=== PATIENT | female | born 1980 | race Hispanic/Latino ===

== ENCOUNTER 2025-01-17 16:05 | Emergency (ER) | payer SELFPAY ==
[2025-01-17 20:13] LABS: Absolute Lymphocytes (CBC) 1.8 K/uL (0.7-4.9); Absolute Monocytes 0.2 K/uL (0.1-1.3); Absolute Neutrophil 7.8 K/uL (1.8-8.0); Albumin 3.8 g/dL (3.4-5.0); Albumin/Globulin Ratio 0.8 (1.1-1.8); Basophils % 0.5 % (0-1.3); Bilirubin Total 0.5 mg/dL (0.2-1.0); Globulin 4.7 g/dL (2.3-3.5); Hematocrit 45.6 % (36.0-45.0); Hemoglobin 14.9 g/dL (12.0-15.0); Lymphocytes % 18.4 % (15.3-44.8); MCH 31.2 pg (27.0-35.0); MCHC 32.7 g/dL (32.0-36.0); MCV 95.6 fL (80-100); MPV 11.2 fL (7.6-11.3); Monocytes % 2.3 % (3.3-12.3); Neutrophils % 78.8 % (41.7-73.7); Platelets 220 thou/uL (152-406); Protein, Total 8.5 g/dL (6.4-8.2); RBC Red Blood Cell Count 4.77 M/uL (3.86-4.86); Red Cell Distribution Width 13.3 % (12.1-15.2)
[2025-01-17] MEDS ORDERED: ONDANSETRON 4 MG/2 ML VIAL ONE (20:50)
[2025-01-17] MEDS ORDERED: KETOROLAC 30 MG/ML INJ ONE (20:50)
[2025-01-17] MEDS ORDERED: FAMOTIDINE 20 MG/2 ML VIAL IV ONE (20:51)
[2025-01-17] MEDS ORDERED: NA CHLORIDE 0.9% 1,000 ML ONE (20:51)
[2025-01-17 21:08] LABS: Specific Gravity > 1.030 (1.005-1.030); Sqamous Epithelial 20-50 /HPF (None Seen); Urine Bacteria 20-50 /HPF (<20); Urine Bilirubin NEGATIVE (Negative); Urine Blood Negative (Negative); Urine Clarity Extremely Turbid (Clear); Urine Color Yellow (Yellow); Urine Crystals Unidentified Few /HPF (None Seen); Urine Culture Reflex Order NOT NEEDED; Urine Glucose NEGATIVE (Negative); Urine Ketones 4+ (Over) (Negative); Urine Microscopic Reflex YN ORDER UMIC; Urine Mucus 3+ /HPF (None Seen); Urine Nitrite NEGATIVE (Negative); Urine Protein 1+ (Negative); Urine Urobilinogen Normal (Normal); Urine WBC <5 /HPF (<5)
--- NOTE | 2025-01-17 21:36 | RAD REPORT ---
EXAMINATION: CT ABDOMEN AND PELVIS WITH AND WITHOUT CONTRAST CLINICAL INDICATION: Female, 44 years old.left flank pain TECHNIQUE: CT abdomen and pelvis was performed before and after the administration of IV contrast as per department protocol. Axial, sagittal and coronal reconstructions were obtained. One or more of the following dose reduction techniques were used: Automated exposure control, adjustment of the mA a nd/or kV according to patient size, and/or iterative reconstruction. Unless otherwise specified, incidental findings do not require dedicated imaging follow-up. [id number]. COMPARISON: No prior exam. FINDINGS: LOWER CHEST: No acute process identified.No significant pericardial effusion. Mild circumferential th ickening of the distal esophagus which could reflect esophagitis. UPPER GI: No significant abnormality. LIVER: No significant focal abnormality. GALLBLADDER/BILE DUCTS: No biliary ductal dilatation.? PANCREAS: No mass, ductal dilation, or una-pancreatic fluid. SPLEEN: Unremarkable. ADRENALS: No adrenal masses. KIDNEYS AND URETERS: No hydronephrosis.No suspicious renal mass. ABDOMINAL AORTA AND OTHER VESSELS: Normal caliber aorta and IVC. PERITONEUM: No abnormal free fluid. No free air. LYMPH NODES: No pathologic lymphadenopathy. ABDOMINAL WALL: Nonspecific soft tissue nodule in the left lower abdominal wall this is irregular in appearance with some slight stranding. It could reflect an endometrioma. It measures approximately 2.2 x 1.3 cm. SMALL BOWEL/COLON: Small bowel has normal course and caliber. No colonic wall thickening or pericolon ic inflammatory changes.Normal appendix. URINARY BLADDER: Underdistended but grossly unremarkable. REPRODUCTIVE ORGANS: Complex adnexal mass just anterior to the uterus measures 8.2 x 9.4 x 6.1 cm. Th is appears septated and cystic. There are areas portions with higher attenuation but no enhancement is seen. MUSCULOSKELETAL: No acute or suspicious osseous abnormality. ADDITIONAL FINDINGS: None. IMPRESSION: No acute or significant abnormalities in the abdomen or pelvis. Soft tissue nodule in the left lower abdominal wall possibly at a site (if the patient has a history of a prior ) could reflect an endometrioma. This would be amenable to biopsy if indicated. Complex cystic pelvic mass could represent an ovarian neoplasm or endometrioma, given the above findi ngs. No enhancement is seen. Recommend outpatient gynecologic referral.
--- NOTE | 2025-01-18 00:52 | RAD REPORT ---
EXAM: US Pelvis Transabdominal and Transvaginal, Complete CLINICAL HISTORY: ABD PAIN TECHNIQUE: Real-time complete transabdominal and transvaginal pelvic ultrasound with image documentation. [place] svaginal imaging was used for better evaluation of the endometrium and adnexa. COMPARISON: CT Abdomen Pelvis dated 01/17/2025 FINDINGS: Uterus/cervix: The uterus is anteverted and measures 9.7 x 4 x 4.1 cm. The endometrial stripe measu res 4 mm in thickness. No myometrial mass. Right ovary: The right ovary measures 3.6 x 2.3 x 4.1 cm. Normal blood flow. Left ovary: Complex left adnexal/ovarian cystic mass measuring approximately 8.5 x 6.7 x 7.6 cm. Th ere are irregular internal septations with vascularity. Normal ovarian stroma is not delineated. Free fluid: No free fluid. Bladder: Unremarkable as visualized. Wall is normal thickness for degree of distention. IMPRESSION: 8.5 x 6.7 x 7.6 cm complex left adnexal/ovarian mass which may reflect a cystic malignancy. Recommend gynecological consult and nonemergent pelvic MR for further characterization. Electronically signed by: Ronny Carmona MD 01/18/2025 12:47 AM [facility] Due to temporary technical issues with the PACS/Nonoba scribe reporting system, reports are being sign ed by the in-house radiologist without review as a courtesy to ensure prompt reporting the interpreting rad iologist is fully responsible for the content of the report. Transcribed Date/Time: 01/18/2025 12:52 AM
--- NOTE | 2025-01-18 01:02 | EDPHYS ---
Physician Documentation [facility] Name: Geraldine Kemp Age: 44 yrs Sex: Female : 1980 Arrival Date: 01/17/2025 Time: 16:05 Bed 8 Private MD: ED Physician Christoph Ervin HPI: 01/17 17:15 This 44 yrs old Female presents to ER via Ambulatory with complaints of cp Abdominal Pain. 17:15 The patient presents with abdominal pain left mid and lateral side of abdomen. Onset: cp The symptoms/episode began/occurred 2 day(s) ago. Associated signs and symptoms: Pertinent positives: nausea, Pertinent negatives: blood in stools, constipation, diarrhea, fever, vaginal discharge, vomiting. The symptoms are described as constant. Severity of pain: in the emergency department the pain is unchanged despite home interventions. STEWARD/STEWARDESS WINE: 17:01 LMP 01/08/2025, unknown ap3 Historical: - Allergies: 16:59 No Known Allergies; ap3 - Home Meds: 16:59 None [Active]; ap3 - PMHx: 16:59 None; ap3 - Immunization history:: Client reports having NOT received the Covid vaccine. - Infectious Disease History:: Denies. - Social history:: Smoking status: Patient denies any tobacco usage or history of. ROS: 17:20 Constitutional: Negative for body aches, chills, fever, poor PO intake, cp 17:20 Eyes: Negative for injury, pain, redness, and discharge, cp 17:20 Cardiovascular: Negative for chest pain, edema, palpitations, 17:20 Respiratory: Negative for cough, shortness of breath, wheezing, 17:20 Abdomen/GI: Positive for abdominal pain, nausea, Negative for diarrhea, constipation, black/tarry stool, rectal bleeding, 17:20 : Negative for urinary symptoms, vaginal bleeding, vaginal discharge, 17:20 Skin: Negative for rash, 17:20 All other systems are negative, Exam: 17:25 Constitutional: The patient appears in no acute distress, alert, awake, non-toxic, well cp developed, well nourished, uncomfortable, 17:25 Head/Face: Normocephalic, atraumatic. cp 17:25 Eyes: Periorbital structures: appear normal, Conjunctiva: normal, no exudate, no injection, Sclera: no appreciated abnormality, Lids and lashes: appear normal, bilaterally, 17:25 ENT: External ear(s): are unremarkable, Nose: is normal, Mouth: Lips: moist, Oral mucosa: moist, Posterior pharynx: Airway: no evidence of obstruction, patent, 17:25 Chest/axilla: Inspection: normal, 17:25 Cardiovascular: Rate: bradycardic, Rhythm: regular, Edema: is not appreciated, JVD: is not appreciated, 17:25 Respiratory: the patient does not display signs of respiratory distress, Respirations: normal, no use of accessory muscles, no retractions, labored breathing, is not present, Breath sounds: are clear throughout, no decreased breath sounds, no stridor, no wheezing, 17:25 Abdomen/GI: Inspection: abdomen appears normal, Bowel sounds: active, all quadrants, Palpation: soft, in all quadrants, moderate abdominal tenderness, in the left mid and lateral abdomen, rebound tenderness, is not appreciated, involuntary guarding, is not appreciated, 17:25 Back: CVA tenderness, is absent, 17:25 Skin: no rash present. 17:25 Neuro: Orientation: to person, place \T\ time. Mentation: is normal, Vital Signs: 16:58 BP 127 / 77; Pulse 57; Resp 18; Temp 97.8; Pulse Ox 100% ; Weight 88.45 kg; Height 5 ap3 ft. 4 in. ; Pain 10/10; 20:58 BP 133 / 73; Pulse 65; Resp 20; Pulse Ox 100% ; vc1 22:59 BP 114 / 60; Pulse 66; Resp 18; Pulse Ox 98% ; vc1 01/18 00:00 BP 125 / 62; Pulse 62; Resp 18; Pulse Ox 100% ; vc1 01/17 16:58 Body Mass Index 33.47 (88.45 kg, 162.56 cm) ap3 02 16:58 Pain Scale: Adult ap3 MDM: 01/17 17:01 Medical Screening Exam initiated cp 01/18 01:00 Data reviewed: vital signs, nurses notes, lab test result(s), radiologic studies, CT cp scan, ultrasound, and as a result, I will discharge patient. 01:00 Differential diagnosis: appendicitis, bowel obstruction, diverticulitis, Endometriosis, cp non-specific abd pain, Pyelonephritis, Ureterolithiasis, urinary tract infection, ovarian cyst. I considered the following discharge prescriptions or medication management in the emergency department Medications were administered in the Emergency Department. See MAR. Counseling: I had a detailed discussion with the patient and/or guardian regarding the historical points, exam findings, and any diagnostic results supporting the discharge/admit diagnosis, lab results, radiology results, the need for outpatient follow up, for definitive care, an OB/Gyne specialist, to return to the emergency department if symptoms worsen or persist or if there are any questions or concerns that arise at home. Response to treatment: the patient's symptoms have markedly improved after treatment, and as a result, I will discharge patient. Special discussion: Based on the patient's Hx, exam, and Dx evaluation, there is no indication for emergent surgery or inpatient Tx. It is understood by the patient/guardian that if the Sx's persist or worsen they need to return immediately for re-evaluation. 01/17 17:11 Order name: CBC with Diff; Complete Time: 21:35 cp 01/17 21:35 Interpretation: Normal except: HCT 45.6; CINDY% 78.8; MN% 2.3. cp 01/17 17:11 Order name: CMP; Complete Time: 21:35 cp 01/17 21:35 Interpretation: Normal except: NA 133; TP 8.5; GLOB 4.7; A/G 0.8. cp 01/17 17:11 Order name: Lipase; Complete Time: 21:35 cp 01/17 17:11 Order name: Test, Urine; Complete Time: 21:35 cp 01/17 21:36 Interpretation: Normal except: Urine SG > 1.030. cp 01/17 17:11 Order name: Urinalysis w/ reflexes; Complete Time: 21:35 cp 01/17 21:40 Interpretation: Normal except: [facility] Extremely Turbid; Urine SG > 1.030; UKET 4+ (Over); cp UPROT 1+; URBC 5-10; UBACT 20-50; SQEPI 20-50; MUCUS 3+. 01/17 17:11 Order name: CT Abd/Pelvis- W/WO Contrast; Complete Time: 21:37 cp 01/17 21:55 Order name: US Pelvis Complete; Complete Time: 00:55 cp 01/17 17:11 Order name: IV Saline Lock; Complete Time: 19:53 cp 01/17 17:11 Order name: Labs collected and sent; Complete Time: 19:53 cp Administered Medications: 01/17 21:13 Drug: Famotidine IVP 20 mg IVP once; dilute with 10 mL 0.9% NaCl; give over 2 minutes vc1 Route: IVP; Site: right antecubital; 01/18 01:15 Follow up: Response: No adverse reaction; Marked relief of symptoms vc1 01/17 21:13 Drug: TORadol - Ketorolac IVP 15 mg IVP once Route: IVP; Site: right antecubital; vc1 01/18 01:15 Follow up: Response: No adverse reaction; Marked relief of symptoms vc1 01/17 21:13 Drug: Ondansetron IVP 4 mg IVP once; over 2 minutes Route: IVP; Site: right antecubital;vc1 01/18 01:15 Follow up: Response: No adverse reaction; Marked relief of symptoms 1 01/17 21:13 Drug: NS 0.9% IV 1000 ml IV at 1 bolus Per protocol; to be given as a bolus over 60 vc1 minutes Route: IV; Rate: 1 bolus; Site: right antecubital; 22:30 Follow up: IV Status: Completed infusion; IV Intake: 1000ml vc1 01/18 01:14 Drug: Hydrocodone-Acetaminophen PO (7.5 mg-325 mg) 1 tabs PO once Route: PO; vc1 01:14 Follow up: Response: Medication administered at discharge. vc1 Disposition Summary: 01/18/25 01:01 Discharge Ordered Notes: Location: Home cp Problem: new cp Symptoms: have improved cp Condition: Stable cp Diagnosis - Intra-abdominal and pelvic swelling, mass and lump, unspecified site cp Followup: cp - With: Jessica Bhatti MD - When: 5 - 6 days - Reason: Recheck today's complaints Discharge Instructions: - Discharge Summary Sheet cp - Pelvic Mass, Female cp Forms: - Medication Reconciliation Form cp - Antibiotic Education cp - Prescription Opioid Use cp - Patient Portal Instructions cp - Leadership Thank You Letter cp Prescriptions: - Diclofenac Sodium 75 mg Oral Tablet Sustained Release - take 1 tablet ORAL route 2 times per day; 30 tablet; Refills: 0, Product cp Selection Permitted Addendum: 01/21/2025 11:12 Co-signature as Attending Physician, Christoph Ervin MD I reviewed the patient's care r t provided by the Advanced Practice Provider and agree with the diagnosis and treatment plan. Signatures: Dispatcher [employer] EDMS Abraham Nj PA PA cp Prokisch, Amanda RN RN ap3 Aisha Dunham RN RN vc1 Christoph Ervin MD MD rt Corrections: (The following items were deleted from the chart) 01/17 17:11 17:11 Abdomen Pelvis W/Wo Con+CT.RAD.BRZ ordered. EDMS EDMS 21:55 21:55 Pelvis Complete+US.RAD.BRZ ordered. EDMS EDMS
--- NOTE | 2025-01-18 01:02 | ER ---
Nurse's Notes [facility] Name: Geraldine Kemp Age: 44 yrs Sex: Female : 1980 Arrival Date: 01/17/2025 Time: 16:05 Bed 8 Private MD: Diagnosis: Intra-abdominal and pelvic swelling, mass and lump, unspecified site Presentation: 01/17 16:58 Chief complaint: Patient states: she has been having left sided abdominal pain for two ap3 days. patient states the pain is a 10/10 on the pain scale. patient also reports nausea. Coronavirus screen: At this time, the client does not indicate any symptoms associated with coronavirus-19. Ebola Screen: No symptoms or risks identified at this time. Initial Sepsis Screen: Does the patient meet any 2 criteria? No. Patient's initial sepsis screen is negative. Does the patient have a suspected source of infection? No. Patient's initial sepsis screen is negative. Risk Assessment: Do you want to hurt yourself or someone else? Patient reports no desire to harm self or others. Onset of symptoms was January 15, 2025. 16:58 Method Of Arrival: Ambulatory ap3 16:58 Acuity: MARIAM 3 ap3 Triage Assessment: 17:00 General: Appears in no apparent distress. Behavior is calm, cooperative, appropriate ap3 for age. Pain: Complains of pain in left upper quadrant and left lower quadrant Pain currently is 10 out of 10 on a pain scale. Neuro: Level of Consciousness is awake, alert, obeys commands, Oriented to person, place, time, situation, Appropriate for age. Cardiovascular: Patient's skin is warm and dry. Respiratory: Airway is patent Respiratory effort is even, unlabored, Respiratory pattern is regular, symmetrical. GI: Reports lower abdominal pain, upper abdominal pain, nausea. LIVESTOCK RANCH HAND: 17:01 LMP 01/08/2025, unknown ap3 Historical: - Allergies: 16:59 No Known Allergies; ap3 - Home Meds: 16:59 None [Active]; ap3 - PMHx: 16:59 None; ap3 - Immunization history:: Client reports having NOT received the Covid vaccine. - Infectious Disease History:: Denies. - Social history:: Smoking status: Patient denies any tobacco usage or history of. Screenin:00 [facility] ED Fall Risk Assessment (Adult) History of falling in the last 3 months, ap3 including since admission No falls in past 3 months (0 pts) Confusion or Disorientation No (0 pts) Intoxicated or Sedated No (0 pts) Impaired Gait No (0 pts) Mobility Assist Device Used No (0 pt) Altered Elimination No (0 pt) Score/Fall Risk Level 0 - 2 = Low Risk Oriented to surroundings, Maintained a safe environment, Educated pt \T\ family on fall prevention, incl call for assistance when getting out of bed, Assessed \T\ reinforced patient's understanding of fall precautions, Hourly rounding (assess needs \T\ fall precautionary measures) done, Used ambulatory aids as needed (educated on \T\ assisted with). Abuse screen: Denies threats or abuse. Nutritional screening: No deficits noted. Tuberculosis screening: No symptoms or risk factors identified. Assessment: 20:58 General: Appears in no apparent distress. uncomfortable, obese, well groomed, well vc1 developed, well nourished, Behavior is calm, cooperative, appropriate for age. Pain: Complains of pain in left lower quadrant and left upper quadrant Pain does not radiate. Pain currently is 10 out of 10 on a pain scale. Noted to be grimacing, guarding, resistant to movement. Neuro: Level of Consciousness is awake, alert, obeys commands, Oriented to person, place, time, situation, Appropriate for age. Cardiovascular: Heart tones S1 S2 present Capillary refill < 3 seconds Patient's skin is warm and dry. Respiratory: Airway is patent Respiratory effort is even, unlabored, Respiratory pattern is regular, symmetrical, Breath sounds are clear bilaterally. GI: Bowel sounds present X 4 quads. Abd is soft Abdomen is tender to palpation in left upper quadrant and left lower quadrant. : No deficits noted. No signs and/or symptoms were reported regarding the genitourinary system. EENT: No deficits noted. No signs and/or symptoms were reported regarding the EENT system. Derm: Skin is intact, is healthy with good turgor, Skin is dry, Skin is normal, Skin temperature is warm. Musculoskeletal: Circulation, motion, and sensation intact. Range of motion: intact in all extremities. 23:00 Reassessment: Patient appears in no apparent distress at this time. No changes from vc1 previously documented assessment. Patient and/or family updated on plan of care and expected duration. Pain level reassessed. Patient is alert, oriented x 3, equal unlabored respirations, skin warm/dry/pink. 01/18 00:27 Reassessment: Patient appears in no apparent distress at this time. No changes from vc1 previously documented assessment. Patient and/or family updated on plan of care and expected duration. Pain level reassessed. Patient is alert, oriented x 3, equal unlabored respirations, skin warm/dry/pink. Vital Signs: 01/17 16:58 BP 127 / 77; Pulse 57; Resp 18; Temp 97.8; Pulse Ox 100% ; Weight 88.45 kg; Height 5 ap3 ft. 4 in. ; Pain 10/10; 20:58 BP 133 / 73; Pulse 65; Resp 20; Pulse Ox 100% ; vc1 22:59 BP 114 / 60; Pulse 66; Resp 18; Pulse Ox 98% ; vc1 01/18 00:00 BP 125 / 62; Pulse 62; Resp 18; Pulse Ox 100% ; vc1 01/17 16:58 Body Mass Index 33.47 (88.45 kg, 162.56 cm) ap3 01/17 16:58 Pain Scale: Adult ap3 ED Course: 01/17 16:08 Patient arrived in ED. mr 16:14 Abraham Nj PA is PHCP. cp 16:14 Lawrence Benson MD is Attending Physician. cp 16:59 Triage completed. ap3 17:00 Patient has correct armband on for positive identification. ap3 17:01 Arm band placed on right wrist. ap3 17:28 Radiology exam delayed due to lab results not completed at this time. test nj not completed at this time. IV insertion attempt and/or patient not having appropriate IV at this time. 19:53 Inserted saline lock: 20 gauge in right antecubital area, using aseptic technique. oh1 Blood collected. Flushed with 10 mL NS. 19:53 Initial lab(s) drawn, by me, sent to lab. oh1 19:53 CBC with Diff Sent. oh1 19:53 CMP Sent. oh1 19:53 Lipase Sent. oh1 20:[facility] vc1 20:48 Urine collected: clean catch specimen, clear. vk 20:56 Aisha Dunham, RN is Primary Nurse. vc1 21:24 CT Abd/Pelvis- W/WO Contrast In Process Unspecified. EDMS 22:12 Christoph Ervin MD is Attending Physician. cp 22:58 US Pelvis Complete In Process Unspecified. EDMS 01/18 01:00 Jessica Bhatti MD is Referral Physician. cp 01:13 No provider procedures requiring assistance completed. IV discontinued, intact, vc1 bleeding controlled, No redness/swelling at site. Pressure dressing applied. 01:14 Provided Education on: f/u with OBGYN. vc1 Administered Medications: 01/17 21:13 Drug: Famotidine IVP 20 mg IVP once; dilute with 10 mL 0.9% NaCl; give over 2 minutes vc1 Route: IVP; Site: right antecubital; 01/18 01:15 Follow up: Response: No adverse reaction; Marked relief of symptoms vc1 01/17 21:13 Drug: TORadol - Ketorolac IVP 15 mg IVP once Route: IVP; Site: right antecubital; vc1 01/18 01:15 Follow up: Response: No adverse reaction; Marked relief of symptoms vc1 01/17 21:13 Drug: Ondansetron IVP 4 mg IVP once; over 2 minutes Route: IVP; Site: right antecubital;vc1 01/18 01:15 Follow up: Response: No adverse reaction; Marked relief of symptoms vc1 01/17 21:13 Drug: NS 0.9% IV 1000 ml IV at 1 bolus Per protocol; to be given as a bolus over 60 vc1 minutes Route: IV; Rate: 1 bolus; Site: right antecubital; 22:30 Follow up: IV Status: Completed infusion; IV Intake: 1000ml vc1 01/18 01:14 Drug: Hydrocodone-Acetaminophen PO (7.5 mg-325 mg) 1 tabs PO once Route: PO; vc1 01:14 Follow up: Response: Medication administered at discharge. vc1 Medication: 01/17 21:00 VIS not applicable for this client. vc1 Intake: 22:30 IV: 1000ml; Total: 1000ml. vc1 Outcome: 01/18 01:01 Discharge ordered by . cp 01:13 Discharged to home ambulatory, with friend, vc1 01:13 Condition: stable 01:13 Discharge instructions given to patient, Instructed on discharge instructions, follow up and referral plans. medication usage, Demonstrated understanding of instructions, follow-up care, medications, Prescriptions given X :23 Patient left the ED. vc1 Signatures: Dispatcher [employer] EDMS Prachi Boykin, Landon Navarrete mr Abraham Nj, Christian Coley cp, Amanda RN RN ap3 Aisha Dunham RN RN vc1 Joan Gee Olivia oh1
[2025-01-18] MEDS ORDERED: HYDROCODONE/APAP 7.5/325 MG TAB ONE (01:09)
[2025-01-18 13:17] VITALS: TEMP 97.8
[2025-01-18 13:20] VITALS: BP 125/62; O2SAT 100
== END 2025-01-18 01:23 | disposition home or self-care (01) ==
LOC: ER 16:05
DX: R19.00 Intra-abdominal and pelvic swelling, mass and lump, unspecified site (principal)
CPT/HCPCS: 36415; 74178; 76856; 80053; 81001; 81025; 83690; 85025; 96361; 96374; 96375; 99284; J2405; J7030; Q9967

== ENCOUNTER 2025-01-30 10:17 | Day surgery (SDC) | payer SELFPAY ==
[2025-01-30 10:54] LABS: Sqamous Epithelial <5 /HPF (None Seen); Urine Bacteria >50 /HPF (<20); Urine Bilirubin NEGATIVE (Negative); Urine Blood Negative (Negative); Urine Clarity Turbid (Clear); Urine Color Light-Yellow (Yellow); Urine Culture Reflex Order NOT NEEDED; Urine Glucose NEGATIVE (Negative); Urine Ketones NEGATIVE (Negative); Urine Microscopic Reflex YN ORDER UMIC; Urine Mucus Slight /HPF (None Seen); Urine Nitrite NEGATIVE (Negative); Urine Protein NEGATIVE (Negative); Urine RBC <5 /HPF (None Seen); Urine Urobilinogen Normal (Normal); Urine WBC <5 /HPF (<5)
[2025-01-30] MEDS ORDERED: ONDANSETRON 4 MG/2 ML VIAL ONE (11:10)
[2025-01-30] MEDS ORDERED: MIDAZOLAM HCL 2 MG/2 ML INJ ONE (11:10)
[2025-01-30] MEDS ORDERED: ROCURONIUM 50 MG/5 ML VIAL IV ONE (11:10)
[2025-01-30] MEDS ORDERED: dexAMETHasone 10 MG/ML VIAL ONE (11:10)
[2025-01-30] MEDS ORDERED: LIDOCAINE 1% MPF 5 ML VIAL ONE (11:10)
[2025-01-30] MEDS: Ringers Lactate 1,000 ML IV ONE ×2 (11:10→14:43)
[2025-01-30] MEDS ORDERED: propofoL 200 MG/20 ML VIAL IV ONE (11:10)
[2025-01-30] MEDS ORDERED: FENTANYL CITR 100 MCG/2 ML ONE (11:10)
[2025-01-30] MEDS: SCOPOLAMINE HYDROBROMIDE PATCH TD ONE (11:15)
[2025-01-30] MEDS ORDERED: EPHEDRINE SULF 50 MG/ML VIAL ONE (13:45)
[2025-01-30] MEDS ORDERED: MEPERIDINE HCL 25 MG/ML SYR IM PRN (14:02)
[2025-01-30] MEDS ORDERED: HYDROCODONE/APAP 5/325 MG TAB PO PRN (14:02)
[2025-01-30] MEDS ORDERED: IBUPROFEN 200 MG TAB PO PRN (14:02)
[2025-01-30] MEDS ORDERED: PROMETHAZINE INJ 25 MG/ML AMP IV PRN (14:02)
--- NOTE | 2025-01-30 14:08 | P.BOP ---
Preoperative diagnosis: pelvic pain left ovarian adnexal cyst Postoperative diagnosis: Pelvic pain,Lf tubo-ovarian torsion,endometriosis: b/L USL,Lf lat wall Primary procedure: Diag laparoscopy LSO, pelvic washings, endo rx Journal Box Inspector: Sangeetha Rehman Estimated blood loss: min Specimen: left ovary and tube, washings, endo left lat wall, USL and right USL Findings: Left ovarian mass and torsion, 3 twists,endo lf latwall/usl, rt USL Anesthesia: General Complications: None Fluids & blood products: [id number], UO 200 Transferred to: Recovery Room Condition: Good
[2025-01-30] MEDS: BUPIVACAINE 0.25% PF 30 ML VIAL ONE (14:26)
[2025-01-30] MEDS ORDERED: KETOROLAC 30 MG/ML INJ ONE (15:27)
[2025-01-30] MEDS ORDERED: Mastisol Adhesive Liq ONE (15:33)
[2025-01-30 16:45] VITALS: O2SAT 98
[2025-01-30 17:29] VITALS: BP 122/60; TEMP 98.6
--- NOTE | 2025-01-30 23:56 | OP ---
Date of Procedure: 01/30/2025 Surgeon: Jessica Bhatti MD [employer] Worker: Sangeetha Nowak Preoperative Diagnoses: Pelvic pain, left complex adnexal mass. Postoperative Diagnoses: Pelvic pain; left tubo-ovarian torsion; left ovarian cyst; endometriosis of bilateral uterosacral ligaments, left lateral wall. Procedures Performed: 1. Diagnostic laparoscopy. 2. Pelvic washings. 3. Left salpingo-oophorectomy. 4. Endometriosis excision. Anesthesia: General endotracheal. Estimated Blood Loss: Minimal. Specimens: Left ovary and tube, pelvic washings, endometriosis of the left lateral wall uterosacral ligament as one specimen and right uterosacral ligament as another specimen. Findings: Left ovarian mass and torsion were noted. There were 3 twists in the torsion. Endometrio sis of the left lateral wall and uterosacral very superficial, and right uterosacral were 2 simple le sions suspicious for endometriosis. Complications: No complications. Estimated Blood Loss: Minimal. Urine Output: 200. Fluids: Approximately 1000. Disposition: Transferred to the recovery room in stable condition. Indications: The patient is a 45-year-old new patient presented to the office as a referral from the ER, presented at the ER for acute pain and she was found to have a complex 8 cm cystic left adnexal mass. She was told that she had a cyst on the right ovary, which during her last was remove d. Has been asymptomatic, no other abnormalities, so discussed about observation and followup with u ltrasound or removal of the cyst with a size at 8 cm. The risk of malignancy is not very high given the patient's age, however was present and therefore the patient wanted to proceed with removal. Description Of Procedure: After informed consent was verified, she was taken back to the OR, placed in supine fashion on the operating table. General anesthesia was given. She was placed in dorsal li thotomy position using Ion stirrups. Arms were tucked by the side. SCDs were placed. Positioning checked. Time-out was done and procedure started. Abdomen was prepped with ChloraPrep; vulva, vagi na, and perineum with Betadine and draped in a sterile fashion. Speculum was placed to expose the ce rvix. Anterior lip was grasped with a single-tooth tenaculum, dilated to 16-Pashto, and diagnostic u terine manipulator introduced and fixed in place. Burroughs was placed to drain the bladder and attached to a drainage bag. This area was draped. 1 cm supraumbilical incision was made with scalpel after 0.25% bupivacaine injected at the skin site. Fascia incised with the scalpel. Peritoneum entered bluntly. S retractor was placed. Eun intr oduced. After adequate insufflation, site of entry was checked and was unremarkable. Upper abdomina l surfaces, liver, gallbladder, appendix were all checked and unremarkable. Torsion of the left ovar thomas tube and ovary was noted. The right ovary had a simple, possibly a 3 cm cyst, either physiologic al or very benign. The right tube was completely unremarkable, endometriosis on the uterosacral on b oth sides and peritoneal implants on the left lateral wall. Other than this, no other abnormalities were noted. A 5 left lower quadrant, two left upper quadrant, and left lateral wall 5 mm ports were placed under direct vision. Then, pelvic washings were performed. Once these were retrieved, I proceeded with th e salpingo-oophorectomy. Left salpingo-oophorectomy: The mesosalpinx was opened up above the round ligament in between the tu be and the round. Once this was opened, the posterior peritoneum was also opened up to create a pedi kaden. The dissection was carried along the round ligament preserving its attachment to the uterus all the way to the proximal end of the tube near the cornual end. This was then cauterized and cut, and dissection was carried towards the ovarian pedicle. Once the pedicle was isolated, after visualizin g the ureter and isolating it completely, it was taken down with the help of the LigaSure. Excellent hemostasis was noted here. Then, the specimen was placed in an Endo Catch bag and left in the left upper quadrant. Endometriosis excision: The peritoneal implants were picked up with the atraumatic graspers. The pe ritoneal lesions were picked up and incised in a circumferential fashion and excised from the base ma rupesh sure that the ureter was dissected laterally on the left lateral wall. Then, the left implant w as handed out. Then, the right side was excised as well with the LigaSure. Thorough irrigation and suction were performed and unremarkable. 5 and 10 mm bags were used. To decompress the cyst, we were to place in the bag and decompress, but the opening of the bag was not large enough for the cyst to fit in. Therefore, a 15 mm bag was then taken and the specimen placed inside it and closed. All trocars were removed under direct vision aft er thorough irrigation and suction. The patient was flattened out. Then, the umbilical trocar was r emoved and the fascial skin incision extended to another 2 cm. The bag was opened. The cyst was nadya ined without any spillage and then removed without any problems. Fascia was closed with 2 figure-of- eight 0 Vicryl sutures, skin incision with interrupted 4-0 Vicryl. Uterine manipulator and Burroughs wer e removed. Instrument, needle, and sponge counts were correct at the end of the case. The patient t olerated the procedure well. 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 SHARIFA/IRMA Voice ID: [id number] Report ID: [id number]
== END 2025-01-30 17:55 | disposition home or self-care (01) ==
LOC: OR 10:17
PROVIDERS: ATTEND Obstetrics & Gynecology
PROC: 0UT24ZZ Resection of Bilateral Ovaries, Percutaneous Endoscopic Approach (ICD-10-PCS; 2025-01-30)
PROC: 0DBW4ZZ Excision of Peritoneum, Percutaneous Endoscopic Approach (ICD-10-PCS; 2025-01-30)
PROC: 0UT74ZZ Resection of Bilateral Fallopian Tubes, Percutaneous Endoscopic Approach (ICD-10-PCS; principal; 2025-01-30 13:00)
DX: N83.202 Unspecified ovarian cyst, left side (principal); R10.2 Pelvic and perineal pain; N80.3C3 Endometriosis of bilateral uterosacral ligament(s), unspecified depth
CPT/HCPCS: 81001; 86850; 86900; 86901; 88108; 88305; A4314; J1100; J2003; J2175; J2250; J2405; J2704; J3010; J7120